=== PATIENT | female | born 1995 | race African-American/Black ===

== ENCOUNTER 2019-11-13 11:55 | Emergency (ER) | payer SELFPAY ==
[~2019-11-13] VITALS: Ht 167.6 cm; Wt 63.6 kg
[2019-11-13 12:13] VITALS: BP 126/83; Ht 167.6 cm; Wt 63.6 kg
== END 2019-11-13 13:47 | disposition left against medical advice (07) ==
LOC: D.ER 11:55
DX: S01.511A Laceration without foreign body of lip, initial encounter (principal); X58.XXXA Exposure to other specified factors, initial encounter; Z53.21 Procedure and treatment not carried out due to patient leaving prior to being seen by health care provider